=== PATIENT | male | born 1990 | race Caucasian/White ===

== ENCOUNTER 2020-10-09 21:36 | Emergency (ER) | payer MEDICAID ==
[~2020-10-09] VITALS: Ht 167.6 cm; Wt 68.0 kg
--- NOTE | 2020-10-09 21:45 | NUR ---
PATIENT BIBSELF C/O SINUS INFECTION. PATIENT ON ATB UNTIL TODAY, STATES ITS NOT BETTER AND STATES GENERALIZED WEAKNESS. PATIENT SEEN AT [facility]. PATIENT IS A/OX 4, RR EVEN AND UNLABORED, NO SIGNS OF SOB NOTED. PATIENT CONNECTED TO MONITOR, VSS.
[2020-10-09] MEDS ORDERED: IV NS 0.9% 1,000 ML BAG IV ONE (22:30)
[2020-10-09 22:35] LABS: BASOPHILS % (AUTO) 0.4 % (0.0-2.0); EOSINOPHILS % (AUTO) 0.6 % (0.0-6.0); HEMATOCRIT 45 % (39-51); LYMPHOCYTES # (AUTO) 1.9 K/uL (0.8-4.8); LYMPHOCYTES % (AUTO) 28.8 % (20.0-44.0); MEAN CORPUSCULAR HGB CONC 33 g/dl (31.0-36.0); MEAN CORPUSCULAR VOLUME 87 fL (80-96); MONOCYTES # (AUTO) 0.4 K/uL (0.1-1.30); MONOCYTES % (AUTO) 5.9 % (2.0-12.0); NEUTROPHILS # (AUTO) 4.3 K/uL (1.8-8.9); NEUTROPHILS % (AUTO) 64.3 % (43.0-81.0); PLATELET COUNT (AUTO) 265 K/uL (150-450); RED BLOOD CELL COUNT(AUTO) 5.23 MIL/uL (4.5-6.0); WHITE BLOOD COUNT (AUTO) 6.7 K/uL (4.3-11.0)
[2020-10-09 22:47] LABS: CALCIUM, SERUM 8.3 mg/dL (8.5-10.1); POTASSIUM 3.7 mmol/L (3.5-5.1)
[2020-10-09] MEDS ORDERED: CT SWABBABLE VALVE TRANS SET 1 EA INFUS.SET MC ONE (22:50)
[2020-10-09] MEDS ORDERED: IOHEXOL-300 100 ML VIAL IV ONE (22:50)
[2020-10-09] MEDS ORDERED: IV NS 0.9% 250 ML IV ONE (22:50)
--- NOTE | 2020-10-09 23:00 | NUR ---
PT TAKEN TO CT
--- NOTE | 2020-10-10 01:15 | NUR ---
Patient discharged to home in stable condition. Written and verbal after care instructions given. Patient verbalizes understanding of instruction.
[2020-10-10 01:18] VITALS: BP 129/84
== END 2020-10-10 01:15 | disposition home or self-care (01) ==
LOC: ER 22:10
DX: M54.2 Cervicalgia (principal); R51.9 Headache, unspecified
CPT/HCPCS: 36415; 70491; 71045; 80048; 85025; 96360; 99285; J7030; J7050; Q9967